=== PATIENT | female | born 1960 | race Caucasian/White ===

== ENCOUNTER 2023-07-18 10:09 | Emergency (ER) | payer BC ==
[~2023-07-18] VITALS: Ht 157.5 cm; Wt 97.3 kg
[2023-07-18] MEDS ORDERED: CLIN-145 PO (10:21)
[2023-07-18] MEDS ORDERED: clindamycin 150mg capsule PO ONE (10:45)
[2023-07-18 11:05] VITALS: BP 171/90; PULSE 81; RESP 16; TEMP 98; O2SAT 98
== END 2023-07-18 11:07 | disposition home or self-care (01) ==
LOC: ER 10:10
DX: L03.211 Cellulitis of face (principal)
CPT/HCPCS: 99283